=== PATIENT | female | born 1955 | race Caucasian/White ===

== ENCOUNTER → 2016-07-02 | Outpatient (CLI) | payer BC, OTHER ==
--- NOTE | 2016-07-02 13:25 | MA ---
Diagnostic Left Digital Mammogram with tomosynthesis Clinical Indications: Follow-up 2 nodules in the left breast Technique: Standard cephalocaudal digital and mediolateral oblique tomosynthesis projections were ob tained of the left breast This examination was processed by the [employer] computer aided detection system . Comparison: December 13, 2015. Breast density: B. Findings: CAD was reviewed. A nodular density in the central left breast and a second nodular density in the outer left breast are stable. On previous ultrasound December 24, 2015 the outer nodule was a si mple cyst. There is no sonographic correlate for the nodule in the central left breast. Impression: Stable mammography. We will repeat an ultrasound to reevaluate a nodule in the central le ft breast that was previously sonographically occult BI-RADS 0. Additional imaging of the left breast which will be performed shortly.. [facility] will send a result letter to the patient. Negative mammography should not preclude additional workup of a clinically suspicious finding. The patient's information is entered into a reminder system with a target due date for her next mammo gram. Diagnostic
--- NOTE | 2016-07-02 14:09 | US ---
Left Breast Ultrasound History: Nodule central left breast, previously ultrasound occult Comparison: Diagnostic mammogram earlier today Technique: Ultrasound exam with a high frequency linear transducer. Findings: In the central left breast is a cluster of small cysts measuring 6 mm in diameter with an a djacent small ovoid simple cyst. No solid nodule is identified. Impression: The nodule moves central left breast is a cluster of simple cysts. BI-RADS 2: Benign mammogram and sonogram. Recommendation: Screening mammography with tomosynthesis in November 2016. Results and recommendation were communicated to the patient at the time of the examination.
== END ==
LOC: FIMAGING 12:47
PROVIDERS: ATTEND Family Medicine
DX: N60.02 Solitary cyst of left breast (principal)
CPT/HCPCS: G0206; G0279

== ENCOUNTER → 2017-08-13 | Outpatient (CLI) | payer OTHER | LOC: BMCIMAGING 08-11 12:23 → FIMAGING 10:16 | PROVIDERS: ATTEND Nurse Practitioner Women's Health | DX: Z12.31 Encounter for screening mammogram for malignant neoplasm of breast (principal) ==

== ENCOUNTER → 2018-03-28 | Outpatient (CLI) | payer OTHER | LOC: FIMAGING 13:30 | PROVIDERS: ATTEND Obstetrics & Gynecology | DX: R22.31 Localized swelling, mass and lump, right upper limb (principal) ==

== ENCOUNTER → 2018-04-27 | Outpatient (CLI) | payer OTHER | LOC: FIMAGING 10:04 | PROVIDERS: ATTEND Internal Medicine | DX: R00.2 Palpitations (principal); R06.02 Shortness of breath; R55 Syncope and collapse; I10 Essential (primary) hypertension ==